=== PATIENT | male | born 1970 | race Hispanic/Latino ===

== ENCOUNTER 2016-11-05 11:13 | Emergency (ER) ==
--- NOTE | 2016-11-05 11:41 | ED EKG INTERP ---
EKG Interpretation - EKG Time of EKG reading by physician:: 11:34 EKG Read and Signed by:: Teja Donis EKG Interpretation (*Must complete 3 of following elements*): Abnormal Rate: 46 Rhythm: Sinus Bradycardia with sinus arrhythmia Nitro: normal QRS: normal MT Interval: normal ST Wave: normal Attestation - Scribe Verification/Attestation Scribe:: Luis Eduardo Low Acting as Scribe for:: Teja Donis Scribe documention review:: This chart was documented by a scribe and accurately reflects the service the provider performed and the decisions made by the provider. Physician Attestation - Physician Attestation I, the provider, attest to the following statement:: Teja Donis Physician documentation Attestation:: This documentation recorded by the scribe accurately reflects the service I personally performed and the decisions made by me.
--- NOTE | 2016-11-05 14:11 | PROVIDER DOCUMENTATION ---
HPI-Cardiac General - History of Present Illness-Cardiac Quality of Pain: reports: none Severity in ED: mild Onset/Duration: unsure Timing: gone now Context/Activities at Onset: reports: none Modifying Factors: improves with: nothing Palpitation Quality: slow heart rate History of arrythmia: reports: none Recent use of:: reports: no stimulants Nitro Today/Relief: reports: no nitro taken today Aspirin Treatment Today: reports: no aspirin today Prior Chest Pain/Cardiac Workup: reports: no prior chest pain Associated Symptoms: reports: denies symptoms Similar Symptoms Previously?: No Recently Seen Here or By Another Healthcare Provider: No - General Chief Complaint: General Adult Stated Complaint: GENERAL Time Seen by Provider: 11/05/16 14:06 - History of Present Illness-Cardiac Nature of Presenting Problem: patient is a 46 y/o M that presents to the ER after going to local clinic and heart rate was in the 40s. Patient denies any chest pain, dizziness, or near syncope. patient reports being on lisinopril and lopressor. (Luis Eduardo Low) Review of Systems - Adult - REVIEW OF SYSTEMS - ADULT Constitutional: denies: chills, fever Eyes: reports: no symptoms reported Ears, Nose, Mouth & Throat: reports: no symptoms reported Cardiovascular: denies: chest pain, palpitations, syncope Respiratory: denies: cough, shortness of breath, wheezing Gastrointestinal: denies: abdominal pain, diarrhea, nausea, vomiting Genitourinary: reports: no symptoms reported Musculoskeletal: reports: no symptoms reported Integumentary: reports: no symptoms reported Neurological: denies: dizziness/vertigo, headache/migraines, seizure, syncope Psychiatric: reports: no symptoms reported Endocrine: reports: no symptoms reported Hematologic/Lymphatic: reports: no symptoms reported Allergic/Immunologic: reports: no symptoms reported All Other Systems: Reviewed and Negative Past History - Adult - PAST MEDICAL HISTORY-ADULT Review of Records: reports: Old Records Reviewed, Nursing Assessment Review, Medications Reviewed Cardiovascular: reports: HTN - PRIOR SURGERIES/PROCEDURES Surgical/Procedure History: reports: none - IMMUNIZATION STATUS Childhood Immunizations: See Nurse Assessment Flu Vaccine: See Nurse Assessment - FAMILY HISTORY Family History: reviewed, not pertinent - SOCIAL HISTORY Smoking: non-smoker Living Situation: family Physical Exam-General - PHYSICAL EXAM-ADULT Initial Vital Signs Reviewed: Yes - CONSTITUTIONAL General Appearance: appears well, alert, no apparent distress - EYES Eyes: PERRL/EOMI, pink conjunctivae - HEAD, EARS, NOSE, MOUTH & THROAT HENMT: normocephalic/atraumatic, moist mucous membranes, normal ENT inspection - NECK Neck: full range of motion, normal inspection. negative: lymphadenopathy - RESPIRATORY Respiratory: lungs clear, normal breath sounds, no respiratory distress, no accessory muscle use - CARDIOVASCULAR Cardiovascular: no edema, no gallop, no murmur, bradycardia - GASTROINTESTINAL (ABDOMEN) Abdominal Exam: normal bowel sounds, non tender, soft, no organomegaly, no pulsatile mass - MUSCULOSKELETAL Extremity: normal range of motion, non-tender, normal inspection, no pedal edema , normal capillary refill - SKIN Integumentary: normal color, warm/dry - NEUROLOGIC Neurologic: grossly normal, no motor/sensory deficits - PSYCHIATRIC Psych/Mental Status: normal mood/affect, normal thought content, normal thought process, oriented x 3 Progress - PLAN OF CARE/RESULTS Progress/Plan/Lab Results: Vital Signs Temp Pulse Resp BP Pulse Ox 11/05/16 11:28 97.5 F L 45 L 16 188/98 100 Orders Category Date Time Status EKG [EKG] Stat Ther 11/05/16 11:31 Ordered pt will be d/c home f/u with pcp, pt was clinically stable, pt understood instructions and results (Luis Eduardo Low) Departure - Departure Time of Disposition Order: 14:09 Certified Medical Emergency: Emergent - Departure DIAGNOSIS: Asymptomatic, Bradycardia Hypertension Qualifiers: Hypertension type: essential hypertension Qualified Code(s): I10 - Essential ( primary) hypertension Disposition: HOME 01 Condition: Stable Additional Instructions: ED Follow Up Instructions: You have been treated by a care provider in the Emergency Department. These instructions are being provided to you so you can have an understanding of how to care for yourself upon discharge. Upon discharge from the Emergency Department, you are responsible for making arrangements for follow-up care by a physician of your choice. Take all prescribed medications as directed. Return to the Emergency Department immediately for any new or worsening symptoms. You may call the Physician Referral phone number at [phone] to obtain a list of Physicians who are taking new patients. Referrals: None,PCP [Primary Care Provider] - Instructions: Hypertension, Bradycardia Attestation - Scribe Verification/Attestation Scribe:: Luis Eduardo Low Acting as Scribe for:: Teja Donis Scribe documention review:: This chart was documented by a scribe and accurately reflects the service the provider performed and the decisions made by the provider. Physician Attestation - Physician Attestation I, the provider, attest to the following statement:: Teja Donis Physician documentation Attestation:: This documentation recorded by the scribe accurately reflects the service I personally performed and the decisions made by me.
[2016-11-05 14:52] VITALS: BP 156/90
--- NOTE | 2016-11-05 15:02 | EKG Report ---
Test Performed on : 11/05/2016 11:34:56 AM Test Reason : bradycardia Blood Pressure : / mmHG Vent. Rate : 046 BPM Atrial Rate : 046 BPM P-R Int : 164 ms QRS Dur : 114 ms QT Int : 494 ms P-R-T Axes : 050 -16 016 degrees QTc Int : 432 ms Sinus bradycardia. with sinus arrhythmia. Otherwise normal ECG When compared with ECG of 05-NOV-2016 11:34, (Unconfirmed) No significant change was found Unconfirmed Result
== END 2016-11-05 14:52 | disposition home or self-care (01) ==
LOC: ED 11:13
DX: R00.1 Bradycardia, unspecified (principal); I10 Essential (primary) hypertension; R94.31 Abnormal electrocardiogram [ECG] [EKG]; Z79.899 Other long term (current) drug therapy; Z79.51 Long term (current) use of inhaled steroids; Z79.1 Long term (current) use of non-steroidal anti-inflammatories (NSAID)
CPT/HCPCS: 93005